=== PATIENT | male | born 1965 | race Caucasian/White ===

== ENCOUNTER 2016-11-29 15:50 | Inpatient (IN) | payer OTHER ==
[~2016-11-29] VITALS: Ht 185.4 cm; Wt 117.9 kg
[~2016-11-29 15:50] MED LIST: CAR3125T; DIGO0.2570; FURO40TA; INSLANTI; INSLISPI; SIMV-8
[2016-11-29] MEDS ORDERED: LEVOFLOXACIN 750MG 150 ML IV ONE (17:00)
[2016-11-29] MEDS ORDERED: VANCOMYCIN PER PHARMACY 0 MG IV SCH (17:15)
[2016-11-29] MEDS ORDERED: ACETAMINOPHEN 500 MG TAB PO PRN (17:15)
[2016-11-29] MEDS ORDERED: MORPHINE SULF INJ 2 MG/ML SYRINGE 1ML IV PRN (17:15)
[2016-11-29] MEDS ORDERED: LORazepam 0.5 MG TAB PO PRN (17:15)
[2016-11-29] MEDS ORDERED: TEMAZEPAM 15 MG CAP PO PRN (17:15)
[2016-11-29] MEDS ORDERED: PROMETHAZINE HCL 25 MG/ML 1ML IV PRN (17:15)
[2016-11-29] MEDS ORDERED: LACTULOSE 20Gm/30ML SOLN PO PRN (17:15)
[2016-11-29] MEDS ORDERED: ALBUTEROL SULF 2.5 MG/0.5ML(0.5%) NEB SOLN NEB PRN (17:15)
[2016-11-29] MEDS ORDERED: NITROGLYCERIN 0.4 MG SL TAB SL PRN (17:15)
[2016-11-29] MEDS ORDERED: DEXTROSE (50%) 50ML SYRG IV PRN (17:15)
[2016-11-29] MEDS ORDERED: HYDROcodone-ACET 5/325MG TAB PO PRN (17:15)
[2016-11-29 17:19] LABS: Basophils # (auto) 0 uL; Basophils % (auto) 0.1 % (0.0-2.0); DEFINITIVE VIEW TRANSMISSION; Eosinophils # (auto) 0.1 uL; Eosinophils % (auto) 1.3 % (0.0-7.0); Hematocrit 34.1 % (41.0-53.0); Hemoglobin 10.9 g/dL (13.5-17.5); Lymphocytes # (auto) 0.9 uL; Lymphocytes % (auto) 9.1 % (10.0-50.0); Mean Corpuscular Hemoglobin 32.7 pg (28.0-32.0); Mean Corpuscular Hgb Conc. 31.9 g/dL (32.0-36.0); Mean Corpuscular Volume 102.6 fL (80.0-100.0); Mean Platelet Volume 8.4 fL (7.4-10.4); Monocytes # (auto) 1.1 uL; Monocytes % (auto) 10.7 % (0.0-12.0); Neutrophils # (auto) 7.9 uL; Neutrophils % (auto) 78.8 % (37.0-80.0); Platelet Count (auto) 118 10^3/uL (140-450); Red Cell Distribution Width 17.5 % (11.6-16.0); White Blood Cell 10.1 10^3/uL (4.4-10.8)
[2016-11-29 17:23] LABS: Albumin 3.1 g/dL (3.4-5.0); BUN/Creatinine Ratio 11.2; Calcium 8.8 mg/dL (8.5-10.1); Potassium 4.2 mmol/L (3.5-5.1)
[2016-11-29 17:26] LABS: Bilirubin, Total 0.5 mg/dL (0.2-1.0); Total Protein 7.5 g/dL (6.4-8.2)
[2016-11-29] MEDS ORDERED: OSELTAMIVIR 75 MG CAP PO ONE (17:30)
[2016-11-29] MEDS ORDERED: PIPERACILLIN-TAZOB 2.25GM 50 ML IV ONE (17:30)
[2016-11-29 17:35] LABS: Partial Thromboplastin Time 38.3 sec (22.64-33.71)
[2016-11-29 17:37] LABS: INR 2.92 (0.9-1.15); Prothrombin Time 30.1 sec (9.37-12.3)
[2016-11-29 17:57] LABS: B-Type Natriuretic Peptide 351.08 pg/mL (0-100); Temperature: 22.3 C (20.0-25.0)
[2016-11-29] MEDS: MORPHINE SULF INJ 2 MG/ML SYRINGE 1ML IV PRN ×2 (18:09→23:13)
[2016-11-29] MEDS ORDERED: VANCOMYCIN 500 MG in D5W 5% 100 ML IV ONE (18:30)
[2016-11-29] MEDS ORDERED: PIPERACILLIN-TAZOB 0.75 GM in D5W 5% 50 ML IV SCH (19:15)
[2016-11-29] MEDS: ALBUTEROL SULF 2.5 MG/0.5ML(0.5%) NEB SOLN NEB SCH (19:40)
[2016-11-29 20:20] VITALS: BP 103/59
[2016-11-29 20:50] VITALS: BP 103/59
[2016-11-29] MEDS ORDERED: VANCOMYCIN 1GM/250ML D5W 250 ML IV ONE ×2 (21:00→21:45)
[2016-11-29] MEDS ORDERED: CARVEDILOL 3.125 MG TAB PO SCH (22:00)
[2016-11-29] MEDS ORDERED: ATORVASTATIN 20 MG TAB PO SCH (22:00)
[2016-11-29] MEDS: ACCU-CHEK COMFORT CURVE STRIP VI SCH (22:00)
[2016-11-29] MEDS ORDERED: WARFARIN SODIUM 5 MG TAB PO ONE (22:15)
[2016-11-29 22:43] VITALS: BP 103/59
[2016-11-29] MEDS: ATORVASTATIN 20 MG TAB PO SCH (23:16)
[2016-11-30] MEDS: InsuLIN REG 1unit/0.01ml Soln (100units/ml) SC SCH ×5 (00:08→20:43)
[2016-11-30] MEDS: INSULIN DETEMIR(LEVEMIR) 1unit/0.01ml Soln (100units/ml) SC SCH ×3 (00:10→20:38)
[2016-11-30] MEDS: PIPERACILLIN-TAZOB 2.25GM 50 ML IV SCH ×2 (00:13→12:24)
[2016-11-30] MEDS: ALBUTEROL SULF 2.5 MG/0.5ML(0.5%) NEB SOLN NEB SCH ×5 (01:28→23:28)
[2016-11-30] MEDS: ACCU-CHEK COMFORT CURVE STRIP VI SCH ×4 (05:13→20:38)
[2016-11-30] MEDS: MORPHINE SULF INJ 2 MG/ML SYRINGE 1ML IV PRN ×5 (05:15→22:49)
[2016-11-30 05:44] VITALS: BP 83/58
[2016-11-30 06:19] LABS: Basophils # (auto) 0 uL; Basophils % (auto) 0.3 % (0.0-2.0); DEFINITIVE VIEW TRANSMISSION; Eosinophils # (auto) 0.1 uL; Eosinophils % (auto) 1.6 % (0.0-7.0); Hematocrit 32.3 % (41.0-53.0); Hemoglobin 10.2 g/dL (13.5-17.5); Lymphocytes # (auto) 1.1 uL; Lymphocytes % (auto) 12.1 % (10.0-50.0); Mean Corpuscular Hemoglobin 32.4 pg (28.0-32.0); Mean Corpuscular Hgb Conc. 31.5 g/dL (32.0-36.0); Mean Platelet Volume 8.1 fL (7.4-10.4); Monocytes # (auto) 0.8 uL; Monocytes % (auto) 9.4 % (0.0-12.0); Neutrophils # (auto) 6.9 uL; Neutrophils % (auto) 76.6 % (37.0-80.0); Platelet Count (auto) 105 10^3/uL (140-450); Red Cell Distribution Width 17.5 % (11.6-16.0)
[2016-11-30 06:26] LABS: INR 2.56 (0.9-1.15); Prothrombin Time 26.4 sec (9.37-12.3)
[2016-11-30 06:44] LABS: BUN/Creatinine Ratio 11.3; Calcium 8.3 mg/dL (8.5-10.1); Potassium 4.7 mmol/L (3.5-5.1)
[2016-11-30] MEDS ORDERED: FUROSEMIDE 40 MG TAB PO SCH (07:00)
[2016-11-30 08:30] VITALS: BP 121/63
[2016-11-30] MEDS ORDERED: AZITHROMYCIN 500MG/D5W 250ML 250 ML IV SCH (09:00)
[2016-11-30] MEDS: AMIODARONE HCL 200 MG TAB PO SCH (09:44)
[2016-11-30] MEDS: OSELTAMIVIR 75 MG CAP PO SCH ×2 (09:45→20:38)
[2016-11-30] MEDS ORDERED: DIGOXIN 0.25 MG TAB PO SCH (10:00)
[2016-11-30] MEDS ORDERED: ENOXAPARIN SOD 30 MG/0.3 ML SYRINGE SC SCH (10:00)
[2016-11-30 12:00] VITALS: BP 140/85
[2016-11-30 16:55] VITALS: BP 151/117
[2016-11-30] MEDS ORDERED: WARFARIN SODIUM 5 MG TAB PO ONE (17:00)
[2016-11-30] MEDS: ATORVASTATIN 20 MG TAB PO SCH (20:37)
[2016-11-30 22:00] VITALS: BP 103/81
[2016-12-01] MEDS: MORPHINE SULF INJ 2 MG/ML SYRINGE 1ML IV PRN ×4 (02:55→14:59)
[2016-12-01 05:20] VITALS: BP 139/72
[2016-12-01 05:57] LABS: Basophils # (auto) 0 uL; Basophils % (auto) 0.1 % (0.0-2.0); DEFINITIVE VIEW TRANSMISSION; Eosinophils # (auto) 0.1 uL; Eosinophils % (auto) 0.9 % (0.0-7.0); Hematocrit 31.5 % (41.0-53.0); Hemoglobin 9.9 g/dL (13.5-17.5); Lymphocytes # (auto) 0.8 uL; Mean Corpuscular Hemoglobin 32.5 pg (28.0-32.0); Mean Corpuscular Hgb Conc. 31.5 g/dL (32.0-36.0); Mean Corpuscular Volume 103.1 fL (80.0-100.0); Mean Platelet Volume 8.6 fL (7.4-10.4); Monocytes # (auto) 1.3 uL; Monocytes % (auto) 11.7 % (0.0-12.0); Neutrophils # (auto) 8.9 uL; Neutrophils % (auto) 80.3 % (37.0-80.0); Platelet Count (auto) 95 10^3/uL (140-450); Red Cell Distribution Width 17.5 % (11.6-16.0); White Blood Cell 11.1 10^3/uL (4.4-10.8)
[2016-12-01] MEDS: ACCU-CHEK COMFORT CURVE STRIP VI SCH ×2 (06:01→11:31)
[2016-12-01] MEDS: INSULIN DETEMIR(LEVEMIR) 1unit/0.01ml Soln (100units/ml) SC SCH (06:02)
[2016-12-01] MEDS: InsuLIN REG 1unit/0.01ml Soln (100units/ml) SC SCH ×2 (06:07→11:35)
[2016-12-01 06:17] LABS: INR 1.88 (0.9-1.15); Prothrombin Time 19.4 sec (9.37-12.3)
[2016-12-01] MEDS: ALBUTEROL SULF 2.5 MG/0.5ML(0.5%) NEB SOLN NEB SCH (06:29)
[2016-12-01 06:53] LABS: BUN/Creatinine Ratio 11.7; Calcium 7.8 mg/dL (8.5-10.1)
[2016-12-01] MEDS ORDERED: InsuLIN REG 1unit/0.01ml Soln (100units/ml) IV ONE (08:30)
[2016-12-01] MEDS ORDERED: DEXTROSE (50%) 50ML SYRG IV ONE (08:30)
[2016-12-01 09:04] VITALS: BP 108/66
[2016-12-01] MEDS ORDERED: EPOETIN ALFA 10,000 UNIT/1 ML VIAL IV ONE (09:15)
[2016-12-01] MEDS ORDERED: SODIUM CHL 0.9% 1000 ML BAG XX ONE (09:15)
[2016-12-01] MEDS: AMIODARONE HCL 200 MG TAB PO SCH (09:48)
[2016-12-01] MEDS: OSELTAMIVIR 75 MG CAP PO SCH (10:00)
[2016-12-01 13:00] VITALS: BP 122/58
[2016-12-01 15:20] VITALS: BP 109/89
[2016-12-01] MEDS ORDERED: WARFARIN SODIUM 5 MG TAB PO ONE (17:00)
== END 2016-12-01 17:44 | disposition home or self-care (01) | DRG 193 ==
LOC: ER 15:52 → TELE 15:53 → TELE-EAST 20:16
PROVIDERS: ADMIT Internal Medicine; ATTEND Internal Medicine Geriatric Medicine
PROC: 5A1D00Z (ICD-10-PCS; principal; 2016-12-01)
DX: J18.9 Pneumonia, unspecified organism (principal); N18.6 End stage renal disease; I42.9 Cardiomyopathy, unspecified; I13.0 Hypertensive heart and chronic kidney disease with heart failure and stage 1 through stage 4 chronic kidney disease, or unspecified chronic kidney disease; E11.22 Type 2 diabetes mellitus with diabetic chronic kidney disease; I25.10 Atherosclerotic heart disease of native coronary artery without angina pectoris; E78.5 Hyperlipidemia, unspecified; I50.9 Heart failure, unspecified; E66.9 Obesity, unspecified; E87.5 Hyperkalemia; Z86.73 Personal history of transient ischemic attack (TIA), and cerebral infarction without residual deficits; Z87.891 Personal history of nicotine dependence; Z95.1 Presence of aortocoronary bypass graft; Z99.2 Dependence on renal dialysis; Z82.49 Family history of ischemic heart disease and other diseases of the circulatory system; Z83.3 Family history of diabetes mellitus; Z79.899 Other long term (current) drug therapy; Z79.4 Long term (current) use of insulin; Z68.34 Body mass index [BMI] 34.0-34.9, adult
CPT/HCPCS: 36415; 71010; 80048; 80053; 80202; 82962; 83036; 83605; 83880; 84484; 85025; 85049; 85610; 85730; 87040; 87400; 93005; 94640; 96365; 96367; 96375; J0885; J1642; J1815; J2543; J7060

== ENCOUNTER 2016-12-06 16:21 | Emergency (ER) | payer OTHER ==
[~2016-12-06] VITALS: Ht 185.4 cm; Wt 117.9 kg
[2016-12-06 17:13] LABS: Basophils # (auto) 0 uL; Basophils % (auto) 0.2 % (0.0-2.0); DEFINITIVE VIEW TRANSMISSION; Eosinophils # (auto) 0.1 uL; Eosinophils % (auto) 0.9 % (0.0-7.0); Hematocrit 31.1 % (41.0-53.0); Hemoglobin 9.8 g/dL (13.5-17.5); Lymphocytes # (auto) 0.6 uL; Lymphocytes % (auto) 7.6 % (10.0-50.0); Mean Corpuscular Hemoglobin 32.3 pg (28.0-32.0); Mean Corpuscular Hgb Conc. 31.6 g/dL (32.0-36.0); Mean Corpuscular Volume 102.1 fL (80.0-100.0); Mean Platelet Volume 8.3 fL (7.4-10.4); Monocytes # (auto) 0.7 uL; Monocytes % (auto) 8.4 % (0.0-12.0); Neutrophils # (auto) 6.7 uL; Neutrophils % (auto) 82.9 % (37.0-80.0); Platelet Count (auto) 113 10^3/uL (140-450); Red Cell Distribution Width 17.4 % (11.6-16.0)
[2016-12-06 17:33] LABS: Albumin 3.1 g/dL (3.4-5.0); BUN/Creatinine Ratio 10.9; Bilirubin, Total 0.4 mg/dL (0.2-1.0); Calcium 8.9 mg/dL (8.5-10.1); Magnesium 2.4 mg/dL (1.6-2.6); Total Protein 7.1 g/dL (6.4-8.2)
[2016-12-06 21:10] VITALS: BP 100/67
== END 2016-12-06 21:37 | disposition home or self-care (01) ==
LOC: ER 16:26
DX: I13.2 Hypertensive heart and chronic kidney disease with heart failure and with stage 5 chronic kidney disease, or end stage renal disease (principal); I50.42 Chronic combined systolic (congestive) and diastolic (congestive) heart failure; N18.6 End stage renal disease; R79.89 Other specified abnormal findings of blood chemistry; D64.9 Anemia, unspecified; D69.6 Thrombocytopenia, unspecified; E46 Unspecified protein-calorie malnutrition; E11.9 Type 2 diabetes mellitus without complications; E78.5 Hyperlipidemia, unspecified; Z95.1 Presence of aortocoronary bypass graft; Z95.811 Presence of heart assist device; Z99.2 Dependence on renal dialysis; Z87.891 Personal history of nicotine dependence
CPT/HCPCS: 36415; 71020; 80053; 83735; 84484; 85025; 85049; 93005

== ENCOUNTER 2016-12-21 13:51 | Emergency (ER) | payer OTHER ==
[~2016-12-21] VITALS: Ht 185.4 cm; Wt 124.8 kg
[2016-12-21] MEDS ORDERED: ONDANSETRON HCL 4 MG/2 ML VIAL IV ONE ×4 (16:00→23:15)
[2016-12-21] MEDS ORDERED: MORPHINE SULF INJ 2 MG/ML SYRINGE 1ML IV ONE ×4 (16:00→23:15)
[2016-12-21 16:24] LABS: Basophils # (auto) 0 uL; Basophils % (auto) 0.4 % (0.0-2.0); Eosinophils # (auto) 0.1 uL; Eosinophils % (auto) 1.1 % (0.0-7.0); Hematocrit 29.5 % (41.0-53.0); Hemoglobin 8.9 g/dL (13.5-17.5); Lymphocytes # (auto) 0.8 uL; Lymphocytes % (auto) 10.9 % (10.0-50.0); Mean Corpuscular Hemoglobin 30.3 pg (28.0-32.0); Mean Corpuscular Hgb Conc. 30.4 g/dL (32.0-36.0); Mean Corpuscular Volume 99.7 fL (80.0-100.0); Mean Platelet Volume 9.4 fL (7.4-10.4); Monocytes # (auto) 0.9 uL; Monocytes % (auto) 11.7 % (0.0-12.0); Neutrophils # (auto) 5.8 uL; Neutrophils % (auto) 75.9 % (37.0-80.0); Platelet Count (auto) 83 10^3/uL (140-450); Red Cell Distribution Width 18.1 % (11.6-16.0); White Blood Cell 7.7 10^3/uL (4.4-10.8)
[2016-12-21 16:34] LABS: Partial Thromboplastin Time 43.1 sec (22.64-33.71)
[2016-12-21 16:40] LABS: BUN/Creatinine Ratio 11.9; Bilirubin, Total 0.7 mg/dL (0.2-1.0); Calcium 9.1 mg/dL (8.5-10.1); Magnesium 2.4 mg/dL (1.6-2.6); Potassium 4.9 mmol/L (3.5-5.1); Total Protein 6.9 g/dL (6.4-8.2)
[2016-12-21 17:21] LABS: INR 3.52 (0.9-1.15); Prothrombin Time 36.3 sec (9.37-12.3)
[2016-12-21] MEDS ORDERED: cefTRIAXone 1GM/50ML D5W 50 ML IV ONE (18:00)
[2016-12-21] MEDS ORDERED: DEXTROSE (50%) 50ML SYRG IV PRN (19:00)
[2016-12-21] MEDS ORDERED: InsuLIN REG 1unit/0.01ml Soln (100units/ml) SC SCH (22:00)
[2016-12-21] MEDS ORDERED: INSULIN DETEMIR(LEVEMIR) 1unit/0.01ml Soln (100units/ml) SC SCH (22:00)
[2016-12-21] MEDS ORDERED: ACCU-CHEK COMFORT CURVE STRIP VI SCH (22:00)
[2016-12-22 01:17] VITALS: BP 128/78
[2016-12-22] MEDS ORDERED: MORPHINE SULF INJ 2 MG/ML SYRINGE 1ML IV ONE (01:45)
== END 2016-12-22 01:38 | disposition home or self-care (01) ==
LOC: ER 14:05
DX: S30.1XXA Contusion of abdominal wall, initial encounter (principal); J18.1 Lobar pneumonia, unspecified organism; D64.9 Anemia, unspecified; D69.6 Thrombocytopenia, unspecified; Z95.811 Presence of heart assist device; R79.89 Other specified abnormal findings of blood chemistry; I13.2 Hypertensive heart and chronic kidney disease with heart failure and with stage 5 chronic kidney disease, or end stage renal disease; N18.6 End stage renal disease; I50.9 Heart failure, unspecified; Z99.2 Dependence on renal dialysis; E11.22 Type 2 diabetes mellitus with diabetic chronic kidney disease; E78.5 Hyperlipidemia, unspecified; Z87.891 Personal history of nicotine dependence; Z79.899 Other long term (current) drug therapy; Z79.4 Long term (current) use of insulin; Z95.1 Presence of aortocoronary bypass graft
CPT/HCPCS: 36415; 71101; 71250; 74176; 80053; 82962; 83036; 83605; 83735; 85025; 85610; 85730; 87040; 93005; 94761; 96365; 96372; 96375; 96376; 99285; J0696; J1815; J2270; J2405

== ENCOUNTER 2017-01-18 12:52 | Emergency (ER) | payer OTHER ==
[~2017-01-18] VITALS: Ht 185.4 cm; Wt 124.7 kg
[2017-01-18 13:15] VITALS: BP 106/45
[2017-01-18 15:15] LABS: Basophils # (auto) 0 uL; Basophils % (auto) 0.4 % (0.0-2.0); DEFINITIVE VIEW TRANSMISSION; Eosinophils # (auto) 0.2 uL; Hematocrit 29.2 % (41.0-53.0); Hemoglobin 9.4 g/dL (13.5-17.5); Lymphocytes # (auto) 0.9 uL; Lymphocytes % (auto) 12.2 % (10.0-50.0); Mean Corpuscular Hemoglobin 31.1 pg (28.0-32.0); Mean Corpuscular Volume 97.2 fL (80.0-100.0); Mean Platelet Volume 8.6 fL (7.4-10.4); Monocytes % (auto) 12.7 % (0.0-12.0); Neutrophils # (auto) 5.6 uL; Neutrophils % (auto) 72.7 % (37.0-80.0); Platelet Count (auto) 99 10^3/uL (140-450); White Blood Cell 7.7 10^3/uL (4.4-10.8)
[2017-01-18 15:28] LABS: Partial Thromboplastin Time 37.6 sec (22.64-33.71)
[2017-01-18 15:30] LABS: INR 3.05 (0.9-1.15); Prothrombin Time 31.4 sec (9.37-12.3)
[2017-01-18 15:39] LABS: BUN/Creatinine Ratio 10.6; Bilirubin, Total 0.6 mg/dL (0.2-1.0); Potassium 4.3 mmol/L (3.5-5.1); Total Protein 7.3 g/dL (6.4-8.2)
[2017-01-18 15:44] LABS: Anisocytosis Moderate; Ovalocytes FEW; Platelet Estimate Decreased
== END 2017-01-18 22:52 | disposition left against medical advice (07) ==
LOC: ER 12:55
DX: R53.1 Weakness (principal); Z53.21 Procedure and treatment not carried out due to patient leaving prior to being seen by health care provider
CPT/HCPCS: 36415; 80053; 85025; 85610; 85730; 93005

== ENCOUNTER 2017-03-05 16:07 | Observation (INO) | payer OTHER ==
[~2017-03-05] VITALS: Ht 185.4 cm; Wt 117.9 kg
[2017-03-05 17:15] LABS: Basophils # (auto) 0 uL; Basophils % (auto) 0.3 % (0.0-2.0); DEFINITIVE VIEW TRANSMISSION; Eosinophils # (auto) 0 uL; Eosinophils % (auto) 0.3 % (0.0-7.0); Hematocrit 30.5 % (41.0-53.0); Hemoglobin 9.4 g/dL (13.5-17.5); Lymphocytes # (auto) 0.5 uL; Lymphocytes % (auto) 6.3 % (10.0-50.0); Mean Corpuscular Hemoglobin 29.6 pg (28.0-32.0); Mean Corpuscular Hgb Conc. 30.8 g/dL (32.0-36.0); Mean Corpuscular Volume 96.3 fL (80.0-100.0); Mean Platelet Volume 8.4 fL (7.4-10.4); Monocytes # (auto) 0.7 uL; Monocytes % (auto) 8.4 % (0.0-12.0); Neutrophils # (auto) 6.8 uL; Neutrophils % (auto) 84.7 % (37.0-80.0); Platelet Count (auto) 117 10^3/uL (140-450)
[2017-03-05 17:19] LABS: Red Cell Distribution Width 20.4 % (11.6-16.0)
[2017-03-05 17:41] LABS: Albumin 2.8 g/dL (3.4-5.0); BUN/Creatinine Ratio 8.3; Bilirubin, Total 0.5 mg/dL (0.2-1.0); Magnesium 2.9 mg/dL (1.6-2.6); Total Protein 7.1 g/dL (6.4-8.2)
[2017-03-05 17:54] LABS: Anisocytosis Moderate; Ovalocytes FEW; Platelet Estimate Decreased; Stomatocytes Few
[2017-03-05 18:56] LABS: Partial Thromboplastin Time 48.6 sec (22.64-33.71)
[2017-03-05 19:15] LABS: Prothrombin Time 54.4 sec (9.37-12.3)
[2017-03-05] MEDS ORDERED: InsuLIN REG 1unit/0.01ml Soln (100units/ml) IV ONE (19:15)
[2017-03-05 19:18] LABS: INR 5.04 (0.9-1.15)
[2017-03-05 22:33] VITALS: BP 109/66
[2017-03-05 22:42] LABS: BUN/Creatinine Ratio 8.8; Calcium 7.7 mg/dL (8.5-10.1)
== END 2017-03-05 19:01 | disposition short-term general hospital (02) | DRG 312 ==
LOC: ER 16:07 → EDBD 16:07 → OVERFLOW 17:38 → ER 19:01
PROVIDERS: ADMIT Family Medicine; ATTEND Family Medicine
DX: R55 Syncope and collapse (principal); N18.6 End stage renal disease; I13.2 Hypertensive heart and chronic kidney disease with heart failure and with stage 5 chronic kidney disease, or end stage renal disease; I42.9 Cardiomyopathy, unspecified; R74.8 Abnormal levels of other serum enzymes; E87.5 Hyperkalemia; I50.9 Heart failure, unspecified; I25.10 Atherosclerotic heart disease of native coronary artery without angina pectoris; E11.22 Type 2 diabetes mellitus with diabetic chronic kidney disease; D63.8 Anemia in other chronic diseases classified elsewhere; Z99.2 Dependence on renal dialysis; D69.6 Thrombocytopenia, unspecified; Z82.49 Family history of ischemic heart disease and other diseases of the circulatory system; Z83.3 Family history of diabetes mellitus; Z87.891 Personal history of nicotine dependence; Z79.4 Long term (current) use of insulin
CPT/HCPCS: 36415; 70450; 71010; 80048; 80053; 82962; 83735; 84484; 85025; 85610; 85730; 93005; 96372; 99285; G0378; J1815